=== PATIENT | male | born 1970 | race Two or more races ===

== ENCOUNTER 2020-12-28 09:33 | Emergency (ER) | payer OTHER ==
[~2020-12-28] VITALS: Ht 175.3 cm; Wt 77.3 kg
[2020-12-28] MEDS ORDERED: INSLAN SQ (09:42)
[2020-12-28] MEDS ORDERED: ANTIDEPRESSION PO (09:42)
[2020-12-28] MEDS ORDERED: ANTIANXIETY PO (09:42)
[2020-12-28] MEDS ORDERED: METF-960 PO (09:42)
[2020-12-28] MEDS ORDERED: SODIUM CHLORIDE 0.9% 1,000 ML IV ONE (09:45)
[2020-12-28 10:11] LABS: BASOPHILS % (AUTO) 0.5 % (0.0-2.0); EOSINOPHILS % (AUTO) 1.5 % (1.0-6.0); HEMATOCRIT 46.6 % (41-53); HEMOGLOBIN 15.7 g/dL (13.5-17.5); LYMPHOCYTES # (AUTO) 1.2 K/uL (1.0-4.8); LYMPHOCYTES % (AUTO) 27.9 % (22.0-44.0); MEAN CORPUSCULAR HEMOGLOBIN 31.8 pg (26.0-34.0); MEAN CORPUSCULAR HGB CONC 33.8 G/dL (31.0-37.0); MEAN CORPUSCULAR VOLUME 94 fL (80-100); MONOCYTES # (AUTO) 0.2 K/uL (0.1-1.0); MONOCYTES % (AUTO) 5.5 % (2.0-9.0); NEUTROPHILS # (AUTO) 2.8 K/uL (1.8-7.7); NEUTROPHILS % (AUTO) 64.6 % (40.0-70.0); PLATELET COUNT (AUTO) 117 K/uL (150-450); RED BLOOD CELL COUNT(AUTO) 4.96 MIL/uL (4.50-5.90); RED CELL DISTRIBUTION WIDTH 12.6 % (11.5-14.5)
[2020-12-28 10:19] LABS: ANION GAP 8 mmol/L (8-16); CALCIUM, TOTAL 8.7 mg/dL (8.8-10.5); CARBON DIOXIDE 28 mmol/L (22-29); CHLORIDE 99 mmol/L (98-107); CREATININE 0.64 mg/dL (0.60-1.30); GLOMERULAR FILTR. RATE CALC > 60 mL/min (>60); GLUCOSE,RANDOM 361 mg/dL (70-110); POTASSIUM 4.2 mmol/L (3.5-5.1); SODIUM SERUM 135 mmol/L (136-145); UREA NITROGEN, BLOOD 8 mg/dL (7-18)
[2020-12-28 10:22] LABS: ACETONE,BLOOD NEGATIVE (NEGATIVE)
[2020-12-28 10:25] LABS: ALANINE AMINOTRANSFERASE 78 U/L (12-78); ALBUMIN 3.6 g/dL (3.4-5.0); ALKALINE PHOSPHATASE 133 U/L (46-116); ASPARTATE AMINOTRANSFERASE 48 U/L (15-37); BILIRUBIN,TOTAL 0.4 mg/dL (0.1-1.0); LIPASE 126 U/L (73-393); TOTAL PROTEIN, SERUM 6.8 g/dL (6.4-8.2)
[2020-12-28] MEDS ORDERED: ONDANSETRON HCL 4 MG/2 ML VIAL IVP ONE (10:45)
[2020-12-28 11:41] LABS: GLUCOMETER DEV NAME(LOC) ERT.5; GLUCOSE,POINT OF CARE 278 MG/DL (70-110)
[2020-12-28 11:47] VITALS: BP 135/83
[2020-12-28 12:13] LABS: APPEARANCE,URINE CLEAR (CLEAR); BILIRUBIN,URINE NEGATIVE (NEGATIVE); GLUCOSE, URINE (UA) >=1000 mg/dL (NEGATIVE); KETONES,URINE NEGATIVE (NEGATIVE); LEUKOCYTE ESTERASE ,URINE NEGATIVE (NEGATIVE); NITRATE,URINE NEGATIVE (NEGATIVE); OCCULT BLOOD,URINE NEGATIVE (NEGATIVE); PH,URINE 6.5 (5.0-8.0); PROTEIN,URINE NEGATIVE (NEGATIVE); UROBILINOGEN,URINE 0.2 mg/dL (<=1.0)
[2020-12-28 12:27] LABS: BACTERIA,URINE None Seen /HPF (None Seen); RBC,URINE None Seen /HPF (0-2); SQUAMOUS EPITHELIAL CELL,UR None Seen /LPF (None Seen); WBC,URINE None Seen /HPF (0-5)
== END 2020-12-28 12:14 | disposition home or self-care (01) ==
LOC: EMS 09:35
DX: E11.65 Type 2 diabetes mellitus with hyperglycemia (principal); F32.9 Major depressive disorder, single episode, unspecified; F41.9 Anxiety disorder, unspecified; F17.210 Nicotine dependence, cigarettes, uncomplicated
CPT/HCPCS: 36415; 80053; 81001; 82009; 82962; 83690; 85025; 96361; 96374; 99284; J2405; J7030; 99283

== ENCOUNTER 2021-01-10 11:36 | Emergency (ER) | payer OTHER ==
[~2021-01-10] VITALS: Ht 172.7 cm; Wt 79.5 kg
[~2021-01-10 11:36] MED LIST: ANTIANXIETY PO; ANTIDEPRESSION PO; INSLAN SQ; METF-960 PO
[2021-01-10] MEDS ORDERED: GLIP10 PO (11:41)
[2021-01-10 12:19] LABS: BASOPHILS % (AUTO) 0.3 % (0.0-2.0); EOSINOPHILS % (AUTO) 0.8 % (1.0-6.0); HEMATOCRIT 44.5 % (41-53); LYMPHOCYTES # (AUTO) 1.6 K/uL (1.0-4.8); LYMPHOCYTES % (AUTO) 28.5 % (22.0-44.0); MEAN CORPUSCULAR HEMOGLOBIN 31.7 pg (26.0-34.0); MEAN CORPUSCULAR HGB CONC 33.6 G/dL (31.0-37.0); MEAN CORPUSCULAR VOLUME 94 fL (80-100); MONOCYTES # (AUTO) 0.3 K/uL (0.1-1.0); MONOCYTES % (AUTO) 4.9 % (2.0-9.0); NEUTROPHILS # (AUTO) 3.6 K/uL (1.8-7.7); NEUTROPHILS % (AUTO) 65.5 % (40.0-70.0); PLATELET COUNT (AUTO) 147 K/uL (150-450); RED BLOOD CELL COUNT(AUTO) 4.71 MIL/uL (4.50-5.90); RED CELL DISTRIBUTION WIDTH 12.9 % (11.5-14.5)
[2021-01-10 12:27] LABS: ANION GAP 9 mmol/L (8-16); CALCIUM, TOTAL 8.5 mg/dL (8.8-10.5); CARBON DIOXIDE 26 mmol/L (22-29); CHLORIDE 101 mmol/L (98-107); CREATININE 0.74 mg/dL (0.60-1.30); GLOMERULAR FILTR. RATE CALC > 60 mL/min (>60); GLUCOSE,RANDOM 396 mg/dL (70-110); POTASSIUM 4.4 mmol/L (3.5-5.1); SODIUM SERUM 136 mmol/L (136-145); UREA NITROGEN, BLOOD 10 mg/dL (7-18)
[2021-01-10 12:33] LABS: ALANINE AMINOTRANSFERASE 59 U/L (12-78); ALBUMIN 3.4 g/dL (3.4-5.0); ALKALINE PHOSPHATASE 97 U/L (46-116); ASPARTATE AMINOTRANSFERASE 27 U/L (15-37); BILIRUBIN,TOTAL 0.3 mg/dL (0.1-1.0); CREATINE KINASE, TOTAL ONLY 48 U/L (39-308); TOTAL PROTEIN, SERUM 6.8 g/dL (6.4-8.2)
[2021-01-10 13:01] VITALS: BP 114/76
== END 2021-01-10 13:09 | disposition home or self-care (01) ==
LOC: EMS 11:37
DX: R25.2 Cramp and spasm (principal); E13.65 Other specified diabetes mellitus with hyperglycemia; F41.9 Anxiety disorder, unspecified; F32.9 Major depressive disorder, single episode, unspecified; F17.210 Nicotine dependence, cigarettes, uncomplicated; Z79.4 Long term (current) use of insulin; Z79.899 Other long term (current) drug therapy
CPT/HCPCS: 80053; 82550; 82962; 85025; 99283

== ENCOUNTER 2021-03-28 11:59 | Emergency (ER) | payer OTHER ==
[~2021-03-28] VITALS: Ht 172.7 cm; Wt 71.8 kg
[~2021-03-28 11:59] MED LIST changes: +GLIP10 PO; +METF-1211 PO; -METF-960 PO
[2021-03-28] MEDS ORDERED: INSULIN REGULAR, HUMAN 100 UNITS/ML IVP ONE (12:30)
[2021-03-28] MEDS ORDERED: ONDANSETRON HCL 4 MG/2 ML VIAL IVP ONE (12:30)
[2021-03-28] MEDS ORDERED: SODIUM CHLORIDE 0.9% 1,000 ML IV ONE (12:30)
[2021-03-28 12:57] LABS: ALANINE AMINOTRANSFERASE 55 U/L (12-78); ALBUMIN 3.6 g/dL (3.4-5.0); ALKALINE PHOSPHATASE 136 U/L (46-116); ANION GAP 14 mmol/L (8-16); ASPARTATE AMINOTRANSFERASE 33 U/L (15-37); BILIRUBIN,TOTAL 0.4 mg/dL (0.1-1.0); CALCIUM, TOTAL 8.7 mg/dL (8.8-10.5); CARBON DIOXIDE 21 mmol/L (22-29); CHLORIDE 99 mmol/L (98-107); CREATININE 0.69 mg/dL (0.60-1.30); GLOMERULAR FILTR. RATE CALC > 60 mL/min (>60); LIPASE 137 U/L (73-393); POTASSIUM 3.9 mmol/L (3.5-5.1); SODIUM SERUM 134 mmol/L (136-145); UREA NITROGEN, BLOOD 10 mg/dL (7-18)
[2021-03-28 12:58] LABS: GLUCOSE,RANDOM 434 mg/dL (70-110)
[2021-03-28 13:29] LABS: BASOPHILS % (AUTO) 0.5 % (0.0-2.0); EOSINOPHILS % (AUTO) 0.4 % (1.0-6.0); HEMATOCRIT 44.2 % (41-53); LYMPHOCYTES # (AUTO) 1.6 K/uL (1.0-4.8); LYMPHOCYTES % (AUTO) 25.8 % (22.0-44.0); MEAN CORPUSCULAR HEMOGLOBIN 32.1 pg (26.0-34.0); MEAN CORPUSCULAR HGB CONC 33.9 G/dL (31.0-37.0); MEAN CORPUSCULAR VOLUME 95 fL (80-100); MONOCYTES # (AUTO) 0.2 K/uL (0.1-1.0); MONOCYTES % (AUTO) 3.5 % (2.0-9.0); NEUTROPHILS # (AUTO) 4.3 K/uL (1.8-7.7); NEUTROPHILS % (AUTO) 69.8 % (40.0-70.0); PLATELET COUNT (AUTO) 146 K/uL (150-450); RED BLOOD CELL COUNT(AUTO) 4.67 MIL/uL (4.50-5.90); RED CELL DISTRIBUTION WIDTH 12.9 % (11.5-14.5)
[2021-03-28 13:45] VITALS: BP 128/73
[2021-03-28 13:53] LABS: GLUCOSE,POINT OF CARE 282 MG/DL (70-110)
== END 2021-03-28 13:59 | disposition home or self-care (01) ==
LOC: EMS 11:59
DX: T78.1XXA Other adverse food reactions, not elsewhere classified, initial encounter (principal); R11.2 Nausea with vomiting, unspecified; E11.65 Type 2 diabetes mellitus with hyperglycemia; G62.9 Polyneuropathy, unspecified; X58.XXXA Exposure to other specified factors, initial encounter; Z79.4 Long term (current) use of insulin; Z79.84 Long term (current) use of oral hypoglycemic drugs
CPT/HCPCS: 36415; 80053; 82962; 83690; 85025; 96361; 96374; 96375; 99284; J1815; J2405; J7030

== ENCOUNTER 2021-03-30 10:06 | Emergency (ER) | payer OTHER ==
[~2021-03-30] VITALS: Ht 172.7 cm; Wt 79.5 kg
[2021-03-30] MEDS ORDERED: SODIUM CHLORIDE 0.9% 1,000 ML IV ONE ×2 (10:45→12:15)
[2021-03-30] MEDS ORDERED: INSULIN REGULAR, HUMAN 100 UNITS/ML IVP ONE (10:45)
[2021-03-30 10:59] LABS: BASOPHILS % (AUTO) 0.3 % (0.0-2.0); EOSINOPHILS % (AUTO) 0.1 % (1.0-6.0); HEMATOCRIT 48.2 % (41-53); HEMOGLOBIN 16.6 g/dL (13.5-17.5); LYMPHOCYTES # (AUTO) 1.7 K/uL (1.0-4.8); LYMPHOCYTES % (AUTO) 20.1 % (22.0-44.0); MEAN CORPUSCULAR HEMOGLOBIN 32.4 pg (26.0-34.0); MEAN CORPUSCULAR HGB CONC 34.3 G/dL (31.0-37.0); MEAN CORPUSCULAR VOLUME 94 fL (80-100); MONOCYTES # (AUTO) 0.7 K/uL (0.1-1.0); MONOCYTES % (AUTO) 7.9 % (2.0-9.0); NEUTROPHILS % (AUTO) 71.6 % (40.0-70.0); PLATELET COUNT (AUTO) 153 K/uL (150-450); RED BLOOD CELL COUNT(AUTO) 5.11 MIL/uL (4.50-5.90); RED CELL DISTRIBUTION WIDTH 12.8 % (11.5-14.5)
[2021-03-30 11:09] LABS: GLUCOMETER DEV NAME(LOC) ERT.5; GLUCOSE,POINT OF CARE 332 MG/DL (70-110)
[2021-03-30 11:11] LABS: ANION GAP 16 mmol/L (8-16); CALCIUM, TOTAL 9.1 mg/dL (8.8-10.5); CARBON DIOXIDE 24 mmol/L (22-29); CHLORIDE 96 mmol/L (98-107); CREATININE 1.04 mg/dL (0.60-1.30); GLOMERULAR FILTR. RATE CALC > 60 mL/min (>60); GLUCOSE,RANDOM 357 mg/dL (70-110); POTASSIUM 4.1 mmol/L (3.5-5.1); SODIUM SERUM 136 mmol/L (136-145); UREA NITROGEN, BLOOD 14 mg/dL (7-18)
[2021-03-30 11:19] LABS: ALANINE AMINOTRANSFERASE 86 U/L (12-78); ALKALINE PHOSPHATASE 119 U/L (46-116); ASPARTATE AMINOTRANSFERASE 79 U/L (15-37); BILIRUBIN,TOTAL 0.9 mg/dL (0.1-1.0); TOTAL PROTEIN, SERUM 7.7 g/dL (6.4-8.2)
[2021-03-30] MEDS ORDERED: ACETAMINOPHEN 325 MG TABLET PO PRN (12:15)
[2021-03-30] MEDS ORDERED: DIAZEPAM 5 MG/ML 2 ML SYRINGE IVP ONE (12:15)
[2021-03-30] MEDS ORDERED: ONDANSETRON HCL 4 MG/2 ML VIAL IVP PRN (12:15)
[2021-03-30] MEDS ORDERED: INSULIN LISPRO 100 UNITS/ML SQ PRN (12:15)
[2021-03-30] MEDS ORDERED: DEXTROSE 50%-WATER 25 GM/50 ML SYRINGE IVP PRN (12:15)
[2021-03-30 12:33] LABS: COVID AG,FIA SOURCE NASOPHARYNGEAL
[2021-03-30 13:35] VITALS: BP 137/99
== END 2021-03-30 13:37 | disposition left against medical advice (07) ==
LOC: EMS 10:07
DX: F10.239 Alcohol dependence with withdrawal, unspecified (principal); R25.2 Cramp and spasm; E11.65 Type 2 diabetes mellitus with hyperglycemia; F17.210 Nicotine dependence, cigarettes, uncomplicated; G62.9 Polyneuropathy, unspecified; Z20.822 Contact with and (suspected) exposure to COVID-19
CPT/HCPCS: 36415; 80053; 82962; 83735; 85025; 87426; 93005; 96361; 96374; 96375; 99285; G0480; J1815; J1885; J7030

== ENCOUNTER 2021-05-04 18:22 | Emergency (ER) | payer OTHER ==
[~2021-05-04] VITALS: Ht 172.7 cm; Wt 79.5 kg
[2021-05-04 18:58] LABS: COVID AG,FIA SOURCE NASOPHARYNGEAL
[2021-05-04 19:01] LABS: GLUCOMETER DEV NAME(LOC) ERT.5; GLUCOSE,POINT OF CARE 176 MG/DL (70-110)
[2021-05-04] MEDS ORDERED: DEXAMETHASONE 4 MG TABLET PO ONE (19:45)
[2021-05-04 20:20] LABS: INFLUENZA TYPE A NEGATIVE FOR TYPE A (NEGATIVE); INFLUENZA TYPE B NEGATIVE FOR TYPE B (NEGATIVE)
[2021-05-04 20:49] VITALS: BP 159/96
== END 2021-05-04 20:50 | disposition home or self-care (01) ==
LOC: EMS 18:53
DX: U07.1 COVID-19 (principal)
CPT/HCPCS: 82962; 87426; 87430; 87804; 99283; J8540; 82948

== ENCOUNTER 2021-05-22 11:29 | Emergency (ER) | payer OTHER ==
[~2021-05-22] VITALS: Ht 172.7 cm; Wt 75.0 kg
[2021-05-22 11:54] VITALS: BP 133/83
[2021-05-22 14:11] LABS: COVID AG,FIA SOURCE NASAL SWAB
== END 2021-05-22 15:02 | disposition home or self-care (01) ==
LOC: EMS 11:31
DX: U07.1 COVID-19 (principal); I10 Essential (primary) hypertension; E11.9 Type 2 diabetes mellitus without complications; F17.210 Nicotine dependence, cigarettes, uncomplicated; Z79.899 Other long term (current) drug therapy
CPT/HCPCS: 87426; 99283; U0003

== ENCOUNTER 2021-05-27 17:56 | Emergency (ER) | payer OTHER ==
[~2021-05-27] VITALS: Ht 172.7 cm; Wt 79.5 kg
[2021-05-27 17:58] VITALS: BP 129/83
== END 2021-05-27 20:45 | disposition home or self-care (01) ==
LOC: EMS 17:58
DX: J06.9 Acute upper respiratory infection, unspecified (principal); I10 Essential (primary) hypertension; E11.9 Type 2 diabetes mellitus without complications; F17.210 Nicotine dependence, cigarettes, uncomplicated; Z79.4 Long term (current) use of insulin; Z79.899 Other long term (current) drug therapy
CPT/HCPCS: 71045; 99283

== ENCOUNTER 2021-12-19 15:19 | Emergency (ER) | payer OTHER ==
[~2021-12-19] VITALS: Ht 172.7 cm; Wt 75.0 kg
[~2021-12-19 15:19] MED LIST changes: -GLIP10 PO; +GLIP10TA10 PO
[2021-12-19 16:07] VITALS: BP 119/88
== END 2021-12-19 20:17 | disposition home or self-care (01) ==
LOC: EMS 15:19
DX: F15.10 Other stimulant abuse, uncomplicated (principal); E11.9 Type 2 diabetes mellitus without complications; I10 Essential (primary) hypertension; G62.9 Polyneuropathy, unspecified; F17.210 Nicotine dependence, cigarettes, uncomplicated; F11.90 Opioid use, unspecified, uncomplicated; Z98.890 Other specified postprocedural states
CPT/HCPCS: 99282

== ENCOUNTER 2022-01-18 16:14 | Emergency (ER) | payer OTHER ==
[~2022-01-18] VITALS: Ht 172.7 cm; Wt 72.7 kg
[2022-01-18 16:19] VITALS: BP 151/90
== END 2022-01-18 17:33 | disposition left against medical advice (07) ==
LOC: EMS 16:14
DX: Z53.21 Procedure and treatment not carried out due to patient leaving prior to being seen by health care provider (principal)
CPT/HCPCS: 82962

== ENCOUNTER 2022-02-27 22:28 | Emergency (ER) | payer OTHER | END 2022-02-27 23:15 | disposition left against medical advice (07) | LOC: EMS 22:28 | DX: Z53.21 Procedure and treatment not carried out due to patient leaving prior to being seen by health care provider (principal) ==

== ENCOUNTER 2022-03-10 11:47 | Inpatient (IN) | payer MEDICAID ==
[~2022-03-10] VITALS: Ht 172.7 cm; Wt 71.7 kg
[2022-03-10 12:56] LABS: GLUCOMETER DEV NAME(LOC) BV3S.; GLUCOSE,POINT OF CARE 391 MG/DL (70-110)
[2022-03-10 13:16] LABS: GLUCOMETER DEV NAME(LOC) POC.BV
[2022-03-10 22:00] VITALS: BP 139/92
[2022-03-10] MEDS ORDERED: INSULIN LISPRO 100 UNITS/ML SQ PRN (22:30)
[2022-03-10] MEDS ORDERED: DEXTROSE 50%-WATER 25 GM/50 ML SYRINGE IVP PRN (22:30)
[2022-03-11] MEDS ORDERED: GLUCAGON,HUMAN RECOMBINANT 1 MG VIAL IM PRN (01:00)
[2022-03-11] MEDS ORDERED: PNEUMOCOCCAL VACCINE POLYVALENT 0.5 ML VIAL [PPSV23] IM. ONE (03:45)
[2022-03-11] MEDS ORDERED: INFLUENZA VIRUS VACCINE QVS 2022-23 (6MO+)/PF 60 MCG/0.5 ML SYRINGE IM. ONE (03:45)
[2022-03-11] MEDS: INSULIN LISPRO 100 UNITS/ML SQ PRN ×4 (06:20→20:50)
[2022-03-11 06:26] LABS: GLUCOMETER DEV NAME(LOC) BV3N.; GLUCOSE,POINT OF CARE 278 MG/DL (70-110)
[2022-03-11 07:13] LABS: BASOPHILS % (AUTO) 0.4 % (0.0-2.0); EOSINOPHILS % (AUTO) 1.4 % (1.0-6.0); HEMATOCRIT 42.6 % (41-53); HEMOGLOBIN 14.4 g/dL (13.5-17.5); LYMPHOCYTES # (AUTO) 1.8 K/uL (1.0-4.8); LYMPHOCYTES % (AUTO) 46.4 % (22.0-44.0); MEAN CORPUSCULAR HEMOGLOBIN 31.7 pg (26.0-34.0); MEAN CORPUSCULAR HGB CONC 33.7 G/dL (31.0-37.0); MEAN CORPUSCULAR VOLUME 94 fL (80-100); MONOCYTES # (AUTO) 0.3 K/uL (0.1-1.0); MONOCYTES % (AUTO) 7.3 % (2.0-9.0); NEUTROPHILS # (AUTO) 1.7 K/uL (1.8-7.7); NEUTROPHILS % (AUTO) 44.5 % (40.0-70.0); PLATELET COUNT (AUTO) 155 K/uL (150-450); RED BLOOD CELL COUNT(AUTO) 4.54 MIL/uL (4.50-5.90); RED CELL DISTRIBUTION WIDTH 13.7 % (11.5-14.5)
[2022-03-11 07:34] LABS: ALANINE AMINOTRANSFERASE 47 U/L (12-78); ALBUMIN 3.1 g/dL (3.4-5.0); ALKALINE PHOSPHATASE 79 U/L (46-116); ANION GAP 6 mmol/L (8-16); ASPARTATE AMINOTRANSFERASE 27 U/L (15-37); BILIRUBIN,TOTAL 0.4 mg/dL (0.1-1.0); CALCIUM, TOTAL 8.8 mg/dL (8.8-10.5); CARBON DIOXIDE 28 mmol/L (22-29); CHLORIDE 104 mmol/L (98-107); CHOL/HDL RATIO 2.2 (4.2-7.3); CHOLESTEROL 158 mg/dL (131-200); CREATININE 0.69 mg/dL (0.60-1.30); FREE T4 (FREE THYROXINE) 1.13 ng/dL (0.76-1.46); GLUCOSE,RANDOM 292 mg/dL (70-110); HDL CHOLESTEROL 73 mg/dL (40-60); LDL CHOL (CALC.) 60 mg/dL (0-130); POTASSIUM 3.9 mmol/L (3.5-5.1); SODIUM SERUM 138 mmol/L (136-145); THYROID STIMULATING HORMONE 0.66 uIU/mL (0.36-3.74); TOTAL PROTEIN, SERUM 6.1 g/dL (6.4-8.2); TRIGLYCERIDES 124 mg/dL (15-150); UREA NITROGEN, BLOOD 7 mg/dL (7-18)
[2022-03-11 07:38] LABS: GLOMERULAR FILTR. RATE CALC > 60 mL/min (>60)
[2022-03-11 07:45] LABS: HEMOGLOBIN A1C 10.5 % (3.8-5.6)
[2022-03-11 08:27] VITALS: BP 106/68
[2022-03-11 11:47] LABS: GLUCOMETER DEV NAME(LOC) BV3N.; GLUCOSE,POINT OF CARE 346 MG/DL (70-110)
[2022-03-11] MEDS ORDERED: LISI5TAB21 PO (14:18)
[2022-03-11] MEDS ORDERED: GABA-1181 PO (14:18)
[2022-03-11] MEDS ORDERED: SIMV-43 PO (14:18)
[2022-03-11] MEDS ORDERED: PIOG15TA66 PO (14:18)
[2022-03-11] MEDS: ESCITALOPRAM OXALATE 10 MG TABLET PO SCH (16:11)
[2022-03-11] MEDS: ARIPiprazole 10 MG TABLET PO SCH (16:11)
[2022-03-11] MEDS: INSULIN GLARGINE,HUM.REC.ANLOG 100 UNITS/ML SQ SCH (16:37)
[2022-03-11 16:46] LABS: GLUCOMETER DEV NAME(LOC) BV3N.; GLUCOSE,POINT OF CARE 309 MG/DL (70-110)
[2022-03-11] MEDS ORDERED: INSULIN GLARGINE,HUM.REC.ANLOG 100 UNITS/ML SQ SCH (17:00)
[2022-03-11] MEDS: SIMVASTATIN 20 MG TABLET PO SCH (20:41)
[2022-03-11] MEDS: ZOLPIDEM TARTRATE 10 MG TABLET PO PRN (20:41)
[2022-03-11 20:52] VITALS: BP 126/82
[2022-03-11 21:00] LABS: GLUCOMETER DEV NAME(LOC) BV3N.; GLUCOSE,POINT OF CARE 297 MG/DL (70-110)
[2022-03-12] MEDS: MetFORMIN HCL 500 MG TABLET PO SCH (06:29)
[2022-03-12] MEDS: GlipiZIDE 10 MG TABLET PO SCH (06:29)
[2022-03-12] MEDS ORDERED: GlipiZIDE 10 MG TABLET PO SCH (06:30)
[2022-03-12] MEDS: INSULIN LISPRO 100 UNITS/ML SQ PRN ×4 (06:31→21:07)
[2022-03-12 06:42] LABS: GLUCOMETER DEV NAME(LOC) BV3N.; GLUCOSE,POINT OF CARE 237 MG/DL (70-110)
[2022-03-12] MEDS ORDERED: MetFORMIN HCL 850 MG TABLET PO SCH (07:00)
[2022-03-12] MEDS: LISINOPRIL 5 MG TABLET PO SCH (08:11)
[2022-03-12] MEDS: ARIPiprazole 10 MG TABLET PO SCH (08:11)
[2022-03-12] MEDS: ESCITALOPRAM OXALATE 10 MG TABLET PO SCH (08:11)
[2022-03-12 08:22] VITALS: BP 128/73
[2022-03-12] MEDS: INSULIN GLARGINE,HUM.REC.ANLOG 100 UNITS/ML SQ SCH ×2 (09:08→16:56)
[2022-03-12] MEDS: HALOPERIDOL 5 MG TABLET PO PRN (10:26)
[2022-03-12] MEDS: LORazepam 2 MG TABLET PO PRN (10:26)
[2022-03-12] MEDS ORDERED: LORazepam 2 MG/ML VIAL IM ONE (11:15)
[2022-03-12] MEDS ORDERED: DiphenhydrAMINE HCL 50 MG/ML VIAL IM ONE (11:15)
[2022-03-12] MEDS ORDERED: HALOPERIDOL LACTATE 5 MG/ML VIAL IM ONE (11:15)
[2022-03-12 11:56] LABS: GLUCOMETER DEV NAME(LOC) BV3N.; GLUCOSE,POINT OF CARE 291 MG/DL (70-110)
[2022-03-12 17:16] LABS: GLUCOMETER DEV NAME(LOC) BV3N.; GLUCOSE,POINT OF CARE 266 MG/DL (70-110)
[2022-03-12 20:09] VITALS: BP 135/82
[2022-03-12] MEDS: SIMVASTATIN 20 MG TABLET PO SCH (21:06)
[2022-03-12 22:36] LABS: GLUCOMETER DEV NAME(LOC) BV3N.; GLUCOSE,POINT OF CARE 270 MG/DL (70-110)
[2022-03-13 06:16] LABS: GLUCOMETER DEV NAME(LOC) BV3N.; GLUCOSE,POINT OF CARE 221 MG/DL (70-110)
[2022-03-13] MEDS: GlipiZIDE 10 MG TABLET PO SCH (06:29)
[2022-03-13] MEDS: MetFORMIN HCL 500 MG TABLET PO SCH (06:30)
[2022-03-13] MEDS: INSULIN LISPRO 100 UNITS/ML SQ PRN ×4 (06:32→20:38)
[2022-03-13 08:10] VITALS: BP 121/86
[2022-03-13] MEDS: ESCITALOPRAM OXALATE 10 MG TABLET PO SCH (08:12)
[2022-03-13] MEDS: LISINOPRIL 5 MG TABLET PO SCH (08:12)
[2022-03-13] MEDS: ARIPiprazole 10 MG TABLET PO SCH (08:13)
[2022-03-13] MEDS: HALOPERIDOL 5 MG TABLET PO PRN ×2 (08:13→16:47)
[2022-03-13] MEDS: LORazepam 2 MG TABLET PO PRN ×2 (08:13→16:47)
[2022-03-13] MEDS: INSULIN GLARGINE,HUM.REC.ANLOG 100 UNITS/ML SQ SCH ×2 (08:29→16:49)
[2022-03-13 11:41] LABS: GLUCOMETER DEV NAME(LOC) BV3N.; GLUCOSE,POINT OF CARE 181 MG/DL (70-110)
[2022-03-13 17:11] LABS: GLUCOMETER DEV NAME(LOC) BV3N.; GLUCOSE,POINT OF CARE 158 MG/DL (70-110)
[2022-03-13] MEDS: SIMVASTATIN 20 MG TABLET PO SCH (20:37)
[2022-03-13] MEDS: ZOLPIDEM TARTRATE 10 MG TABLET PO PRN (20:37)
[2022-03-13 20:47] LABS: GLUCOMETER DEV NAME(LOC) BV3N.; GLUCOSE,POINT OF CARE 240 MG/DL (70-110)
[2022-03-13 21:37] VITALS: BP 118/80
[2022-03-14 06:17] LABS: GLUCOMETER DEV NAME(LOC) BV3N.; GLUCOSE,POINT OF CARE 114 MG/DL (70-110)
[2022-03-14] MEDS: MetFORMIN HCL 500 MG TABLET PO SCH (06:30)
[2022-03-14] MEDS: GlipiZIDE 10 MG TABLET PO SCH (06:30)
[2022-03-14 08:16] VITALS: BP 107/70
[2022-03-14] MEDS: LISINOPRIL 5 MG TABLET PO SCH (08:32)
[2022-03-14] MEDS: ARIPiprazole 10 MG TABLET PO SCH (08:32)
[2022-03-14] MEDS: LORazepam 2 MG TABLET PO PRN ×3 (08:32→20:51)
[2022-03-14] MEDS: ESCITALOPRAM OXALATE 10 MG TABLET PO SCH (08:32)
[2022-03-14] MEDS: HALOPERIDOL 5 MG TABLET PO PRN ×2 (08:32→16:10)
[2022-03-14] MEDS: INSULIN GLARGINE,HUM.REC.ANLOG 100 UNITS/ML SQ SCH ×2 (08:50→16:57)
[2022-03-14] MEDS: INSULIN LISPRO 100 UNITS/ML SQ PRN ×2 (16:57→20:57)
[2022-03-14 17:42] LABS: GLUCOMETER DEV NAME(LOC) BV3N.; GLUCOSE,POINT OF CARE 253 MG/DL (70-110)
[2022-03-14 20:09] VITALS: BP 106/66
[2022-03-14] MEDS: ZOLPIDEM TARTRATE 10 MG TABLET PO PRN (20:51)
[2022-03-14] MEDS: SIMVASTATIN 20 MG TABLET PO SCH (20:51)
[2022-03-14 22:35] LABS: GLUCOMETER DEV NAME(LOC) BV3N.; GLUCOSE,POINT OF CARE 209 MG/DL (70-110)
[2022-03-15] MEDS: GlipiZIDE 10 MG TABLET PO SCH (06:19)
[2022-03-15] MEDS: MetFORMIN HCL 500 MG TABLET PO SCH (06:20)
[2022-03-15 06:41] LABS: GLUCOMETER DEV NAME(LOC) BV3N.; GLUCOSE,POINT OF CARE 92 MG/DL (70-110)
[2022-03-15 08:12] VITALS: BP 112/67
[2022-03-15] MEDS: ARIPiprazole 10 MG TABLET PO SCH (08:20)
[2022-03-15] MEDS: LISINOPRIL 5 MG TABLET PO SCH (08:20)
[2022-03-15] MEDS: LORazepam 2 MG TABLET PO PRN ×2 (08:20→16:13)
[2022-03-15] MEDS: ESCITALOPRAM OXALATE 10 MG TABLET PO SCH (08:20)
[2022-03-15] MEDS: HALOPERIDOL 5 MG TABLET PO PRN ×2 (08:20→16:13)
[2022-03-15] MEDS: INSULIN GLARGINE,HUM.REC.ANLOG 100 UNITS/ML SQ SCH ×3 (08:26→16:20)
[2022-03-15] MEDS: INSULIN LISPRO 100 UNITS/ML SQ PRN ×2 (16:19→20:03)
[2022-03-15] MEDS: SIMVASTATIN 20 MG TABLET PO SCH (20:01)
[2022-03-15 20:06] LABS: GLUCOMETER DEV NAME(LOC) BV3N.; GLUCOSE,POINT OF CARE 266 MG/DL (70-110)
[2022-03-15 20:13] VITALS: BP 114/66
[2022-03-15] MEDS: ZOLPIDEM TARTRATE 10 MG TABLET PO PRN (20:33)
[2022-03-15 20:40] LABS: GLUCOMETER DEV NAME(LOC) BV3N.; GLUCOSE,POINT OF CARE 171 MG/DL (70-110)
[2022-03-16 06:11] LABS: GLUCOMETER DEV NAME(LOC) BV3N.; GLUCOSE,POINT OF CARE 105 MG/DL (70-110)
[2022-03-16] MEDS: GlipiZIDE 10 MG TABLET PO SCH (06:43)
[2022-03-16] MEDS: MetFORMIN HCL 500 MG TABLET PO SCH (06:43)
[2022-03-16 08:20] VITALS: BP 113/77
[2022-03-16] MEDS: ARIPiprazole 10 MG TABLET PO SCH (08:37)
[2022-03-16] MEDS: LORazepam 2 MG TABLET PO PRN (08:37)
[2022-03-16] MEDS: LISINOPRIL 5 MG TABLET PO SCH (08:37)
[2022-03-16] MEDS: ESCITALOPRAM OXALATE 10 MG TABLET PO SCH (08:37)
[2022-03-16] MEDS: INSULIN GLARGINE,HUM.REC.ANLOG 100 UNITS/ML SQ SCH ×2 (08:43→17:00)
[2022-03-16 11:56] LABS: GLUCOMETER DEV NAME(LOC) BV3N.; GLUCOSE,POINT OF CARE 154 MG/DL (70-110)
[2022-03-16] MEDS: INSULIN LISPRO 100 UNITS/ML SQ PRN (12:32)
[2022-03-16] MEDS ORDERED: GLIP10TA10 PO (16:46)
[2022-03-16] MEDS ORDERED: ESCI-8 PO (16:46)
[2022-03-16] MEDS ORDERED: INSLAN SQ (16:46)
[2022-03-16] MEDS ORDERED: ARIP10TA38 PO (16:46)
[2022-03-16] MEDS ORDERED: METF-1211 PO (16:46)
== END 2022-03-16 18:00 | disposition home or self-care (01) | DRG 750 ==
LOC: B3A 18:23
PROVIDERS: ADMIT Psychiatry & Neurology Psychiatry; ATTEND Psychiatry & Neurology Psychiatry
DX: F25.1 Schizoaffective disorder, depressive type (principal); E11.9 Type 2 diabetes mellitus without complications; R45.851 Suicidal ideations; E78.5 Hyperlipidemia, unspecified; F10.10 Alcohol abuse, uncomplicated; F15.10 Other stimulant abuse, uncomplicated; I10 Essential (primary) hypertension; Z20.822 Contact with and (suspected) exposure to COVID-19; Z59.00 Homelessness unspecified; Z79.899 Other long term (current) drug therapy
CPT/HCPCS: 80053; 80061; 82962; 83036; 84439; 84443; 85025; 90686; J1200; J1630; J1815; J2060

== ENCOUNTER 2022-03-10 13:50 | Emergency (ER) | payer MEDICAID, OTHER ==
[~2022-03-10] VITALS: Ht 167.6 cm; Wt 75.0 kg
[2022-03-10] MEDS ORDERED: HALOPERIDOL 5 MG TABLET PO ONE (14:45)
[2022-03-10] MEDS ORDERED: LORazepam 2 MG TABLET PO ONE (14:45)
[2022-03-10] MEDS ORDERED: DiphenhydrAMINE HCL 50 MG CAPSULE PO ONE (14:45)
[2022-03-10 14:48] LABS: BASOPHILS % (AUTO) 0.5 % (0.0-2.0); EOSINOPHILS % (AUTO) 1.3 % (1.0-6.0); HEMATOCRIT 43.3 % (41-53); HEMOGLOBIN 14.5 g/dL (13.5-17.5); LYMPHOCYTES # (AUTO) 2.1 K/uL (1.0-4.8); LYMPHOCYTES % (AUTO) 41.3 % (22.0-44.0); MEAN CORPUSCULAR HEMOGLOBIN 31.5 pg (26.0-34.0); MEAN CORPUSCULAR HGB CONC 33.5 G/dL (31.0-37.0); MEAN CORPUSCULAR VOLUME 94 fL (80-100); MONOCYTES # (AUTO) 0.3 K/uL (0.1-1.0); MONOCYTES % (AUTO) 6.6 % (2.0-9.0); NEUTROPHILS # (AUTO) 2.6 K/uL (1.8-7.7); NEUTROPHILS % (AUTO) 50.3 % (40.0-70.0); PLATELET COUNT (AUTO) 173 K/uL (150-450); RED CELL DISTRIBUTION WIDTH 13.7 % (11.5-14.5)
[2022-03-10 14:59] LABS: SALICYLATE 0.9 mg/dL (2.8-20.0)
[2022-03-10 15:00] LABS: ALANINE AMINOTRANSFERASE 47 U/L (12-78); ALBUMIN 3.6 g/dL (3.4-5.0); ALKALINE PHOSPHATASE 143 U/L (46-116); ANION GAP 14 mmol/L (8-16); ASPARTATE AMINOTRANSFERASE 23 U/L (15-37); BILIRUBIN,TOTAL 0.2 mg/dL (0.1-1.0); CALCIUM, TOTAL 9.3 mg/dL (8.8-10.5); CARBON DIOXIDE 23 mmol/L (22-29); CHLORIDE 98 mmol/L (98-107); CREATININE 0.81 mg/dL (0.60-1.30); POTASSIUM 3.6 mmol/L (3.5-5.1); SODIUM SERUM 135 mmol/L (136-145); TOTAL PROTEIN, SERUM 6.8 g/dL (6.4-8.2); UREA NITROGEN, BLOOD 8 mg/dL (7-18)
[2022-03-10 15:02] LABS: ACETAMINOPHEN < 2 mcg/mL (10-30); GLOMERULAR FILTR. RATE CALC > 60 mL/min (>60); GLUCOSE,RANDOM 421 mg/dL (70-110)
[2022-03-10 15:41] LABS: APPEARANCE,URINE CLEAR (CLEAR); BILIRUBIN,URINE NEGATIVE (NEGATIVE); GLUCOSE, URINE (UA) >=1000 mg/dL (NEGATIVE); KETONES,URINE NEGATIVE (NEGATIVE); LEUKOCYTE ESTERASE ,URINE NEGATIVE (NEGATIVE); NITRATE,URINE NEGATIVE (NEGATIVE); OCCULT BLOOD,URINE NEGATIVE (NEGATIVE); PH,URINE 5.5 (5.0-8.0); PROTEIN,URINE NEGATIVE (NEGATIVE); SPECIFIC GRAVITIY, URINE 1.036 (1.003-1.030); UROBILINOGEN,URINE <=1.0 mg/dL (<=1.0)
[2022-03-10] MEDS ORDERED: INSULIN REGULAR, HUMAN 100 UNITS/ML IVP ONE (15:45)
[2022-03-10] MEDS ORDERED: SODIUM CHLORIDE 0.9% 1,000 ML IV ONE (15:45)
[2022-03-10 15:51] LABS: GLUCOMETER DEV NAME(LOC) ERT.5; GLUCOSE,POINT OF CARE 328 MG/DL (70-110)
[2022-03-10 15:52] LABS: AMPHET/METH SCREEN,URINE POSITIVE (NEGATIVE); BARBITURATE SCREEN, URINE NEGATIVE (NEGATIVE); BENZODIAZEPINES SCREEN,URINE NEGATIVE (NEGATIVE); CANNABINOID SCREEN,URINE NEGATIVE (NEGATIVE); COCAINE SCREEN,URINE NEGATIVE (NEGATIVE); METHADONE SCREEN, URINE NEGATIVE (NEGATIVE); OPIATE SCREEN,URINE NEGATIVE (NEGATIVE)
[2022-03-10 16:02] LABS: PHENCYCLIDINE SCREEN,URINE NEGATIVE (NEGATIVE)
[2022-03-10 16:08] LABS: BACTERIA,URINE None Seen /HPF (None Seen); RBC,URINE None Seen /HPF (0-2); SQUAMOUS EPITHELIAL CELL,UR Few /LPF (None Seen); WBC,URINE None Seen /HPF (0-5)
[2022-03-10 18:11] LABS: GLUCOMETER DEV NAME(LOC) ERT.5; GLUCOSE,POINT OF CARE 229 MG/DL (70-110)
[2022-03-10 20:45] VITALS: BP 137/76
[2022-03-10 21:26] LABS: GLUCOMETER DEV NAME(LOC) ERT.5; GLUCOSE,POINT OF CARE 257 MG/DL (70-110)
[2022-03-11] MEDS ORDERED: PIOG15TA66 PO (14:18)
[2022-03-11] MEDS ORDERED: GABA-1181 PO (14:18)
[2022-03-11] MEDS ORDERED: SIMV-43 PO (14:18)
[2022-03-11] MEDS ORDERED: LISI5TAB21 PO (14:18)
== END 2022-03-10 21:35 | disposition home or self-care (01) ==
LOC: EMS 13:58
DX: F20.9 Schizophrenia, unspecified (principal); E11.9 Type 2 diabetes mellitus without complications; F11.90 Opioid use, unspecified, uncomplicated; F41.9 Anxiety disorder, unspecified; F10.20 Alcohol dependence, uncomplicated; F15.10 Other stimulant abuse, uncomplicated; F19.10 Other psychoactive substance abuse, uncomplicated; F17.210 Nicotine dependence, cigarettes, uncomplicated; I10 Essential (primary) hypertension
CPT/HCPCS: 99285; 96374; 96361; 80053; 82962; 85025; 36415; 80307; 81001; G0480; J1815; J7030; 81003; G0481

== ENCOUNTER 2022-04-12 12:51 | Emergency (ER) | payer MEDICAID, OTHER ==
[~2022-04-12] VITALS: Ht 167.6 cm; Wt 63.6 kg
[~2022-04-12 12:51] MED LIST changes: -ANTIANXIETY PO; -ANTIDEPRESSION PO; +ARIP10TA38 PO; +ESCI-8 PO; +LISI5TAB21 PO; +SIMV-43 PO
[2022-04-12 12:54] VITALS: BP 126/81
[2022-04-12] MEDS ORDERED: PIOG15TA66 PO (13:59)
[2022-04-12] MEDS ORDERED: GABA-1181 PO (13:59)
== END 2022-04-12 13:56 | disposition left against medical advice (07) ==
LOC: EMS 12:57
DX: Z53.21 Procedure and treatment not carried out due to patient leaving prior to being seen by health care provider (principal)
CPT/HCPCS: 82962

== ENCOUNTER 2022-04-13 04:47 | Emergency (ER) | payer OTHER ==
[~2022-04-13] VITALS: Ht 172.7 cm; Wt 63.6 kg
[~2022-04-13 04:47] MED LIST changes: +GABA-1181 PO; +PIOG15TA66 PO
[2022-04-13 05:11] LABS: GLUCOMETER DEV NAME(LOC) ERT.5; GLUCOSE,POINT OF CARE 341 MG/DL (70-110)
[2022-04-13] MEDS ORDERED: SODIUM CHLORIDE 0.9% 1,000 ML IV ONE (07:45)
[2022-04-13] MEDS ORDERED: INSULIN REGULAR, HUMAN 100 UNITS/ML IVP ONE (07:45)
[2022-04-13 08:00] LABS: COVID AG,FIA SOURCE NASAL SWAB
[2022-04-13 08:14] LABS: ANION GAP 15 mmol/L (8-16); CALCIUM, TOTAL 9.4 mg/dL (8.8-10.5); CARBON DIOXIDE 22 mmol/L (22-29); CHLORIDE 92 mmol/L (98-107); CREATININE 0.65 mg/dL (0.60-1.30); GLOMERULAR FILTR. RATE CALC > 60 mL/min (>60); GLUCOSE,RANDOM 266 mg/dL (70-110); POTASSIUM 4.5 mmol/L (3.5-5.1); SODIUM SERUM 129 mmol/L (136-145); UREA NITROGEN, BLOOD 7 mg/dL (7-18)
[2022-04-13 08:15] LABS: BASOPHILS % (AUTO) 0.2 % (0.0-2.0); EOSINOPHILS % (AUTO) 0.1 % (1.0-6.0); HEMATOCRIT 45.1 % (41-53); HEMOGLOBIN 15.6 g/dL (13.5-17.5); LYMPHOCYTES # (AUTO) 1.2 K/uL (1.0-4.8); LYMPHOCYTES % (AUTO) 11.3 % (22.0-44.0); MEAN CORPUSCULAR HEMOGLOBIN 32.3 pg (26.0-34.0); MEAN CORPUSCULAR HGB CONC 34.6 G/dL (31.0-37.0); MEAN CORPUSCULAR VOLUME 93 fL (80-100); MONOCYTES # (AUTO) 0.9 K/uL (0.1-1.0); MONOCYTES % (AUTO) 8.4 % (2.0-9.0); NEUTROPHILS # (AUTO) 8.7 K/uL (1.8-7.7); PLATELET COUNT (AUTO) 190 K/uL (150-450); RED BLOOD CELL COUNT(AUTO) 4.83 MIL/uL (4.50-5.90); RED CELL DISTRIBUTION WIDTH 12.4 % (11.5-14.5)
[2022-04-13 08:20] LABS: ALANINE AMINOTRANSFERASE 89 U/L (12-78); ALBUMIN 3.2 g/dL (3.4-5.0); ALKALINE PHOSPHATASE 91 U/L (46-116); ASPARTATE AMINOTRANSFERASE 78 U/L (15-37); BILIRUBIN,TOTAL 0.8 mg/dL (0.1-1.0); TOTAL PROTEIN, SERUM 7.8 g/dL (6.4-8.2)
[2022-04-13 09:05] LABS: INFLUENZA TYPE A NEGATIVE FOR TYPE A (NEGATIVE); INFLUENZA TYPE B NEGATIVE FOR TYPE B (NEGATIVE); RAPID GROUP A STREP NEGATIVE (NEGATIVE)
[2022-04-13 09:06] LABS: GLUCOSE,POINT OF CARE 261 MG/DL (70-110)
[2022-04-13 09:25] VITALS: BP 139/80
[2022-04-13 09:37] LABS: GLUCOSE,POINT OF CARE 174 MG/DL (70-110)
== END 2022-04-13 10:01 | disposition home or self-care (01) ==
LOC: EMS 04:48
DX: R05.9 Cough, unspecified (principal); Z20.822 Contact with and (suspected) exposure to COVID-19; E11.9 Type 2 diabetes mellitus without complications; F20.9 Schizophrenia, unspecified; F10.20 Alcohol dependence, uncomplicated; F15.10 Other stimulant abuse, uncomplicated; F17.210 Nicotine dependence, cigarettes, uncomplicated; I10 Essential (primary) hypertension; R41.9 Unspecified symptoms and signs involving cognitive functions and awareness
CPT/HCPCS: 99283; 96374; 96361; 87426; 80053; 82962; 85025; 87430; 87804; 36415; J1815; J7030

== ENCOUNTER 2022-04-18 11:32 | Emergency (ER) | payer OTHER ==
[~2022-04-18] VITALS: Ht 180.3 cm; Wt 72.0 kg
[~2022-04-18 11:32] MED LIST changes: -SIMV-43 PO
[2022-04-18] MEDS ORDERED: SODIUM CHLORIDE 0.9% 1,000 ML IV ONE (11:45)
[2022-04-18 12:08] LABS: BASOPHILS % (AUTO) 0.4 % (0.0-2.0); EOSINOPHILS % (AUTO) 0.3 % (1.0-6.0); HEMATOCRIT 43.2 % (41-53); HEMOGLOBIN 14.5 g/dL (13.5-17.5); LYMPHOCYTES # (AUTO) 2.1 K/uL (1.0-4.8); LYMPHOCYTES % (AUTO) 31.5 % (22.0-44.0); MEAN CORPUSCULAR HEMOGLOBIN 31.9 pg (26.0-34.0); MEAN CORPUSCULAR HGB CONC 33.6 G/dL (31.0-37.0); MEAN CORPUSCULAR VOLUME 95 fL (80-100); MONOCYTES # (AUTO) 0.3 K/uL (0.1-1.0); MONOCYTES % (AUTO) 5.3 % (2.0-9.0); NEUTROPHILS # (AUTO) 4.1 K/uL (1.8-7.7); NEUTROPHILS % (AUTO) 62.5 % (40.0-70.0); PLATELET COUNT (AUTO) 278 K/uL (150-450); RED BLOOD CELL COUNT(AUTO) 4.55 MIL/uL (4.50-5.90); RED CELL DISTRIBUTION WIDTH 12.6 % (11.5-14.5)
[2022-04-18 13:12] LABS: ANION GAP 12 mmol/L (8-16); CALCIUM, TOTAL 8.1 mg/dL (8.8-10.5); CARBON DIOXIDE 24 mmol/L (22-29); CHLORIDE 98 mmol/L (98-107); CREATININE 0.63 mg/dL (0.60-1.30); GLUCOSE,RANDOM 349 mg/dL (70-110); POTASSIUM 3.9 mmol/L (3.5-5.1); SODIUM SERUM 134 mmol/L (136-145); UREA NITROGEN, BLOOD 5 mg/dL (7-18)
[2022-04-18 13:13] LABS: GLOMERULAR FILTR. RATE CALC > 60 mL/min (>60)
[2022-04-18 13:18] LABS: ALANINE AMINOTRANSFERASE 108 U/L (12-78); ALBUMIN 2.7 g/dL (3.4-5.0); ALKALINE PHOSPHATASE 108 U/L (46-116); ASPARTATE AMINOTRANSFERASE 130 U/L (15-37); BILIRUBIN,TOTAL 0.1 mg/dL (0.1-1.0); TOTAL PROTEIN, SERUM 6.5 g/dL (6.4-8.2)
[2022-04-18 13:19] LABS: ACETAMINOPHEN < 2 mcg/mL (10-30)
[2022-04-18 13:31] LABS: SALICYLATE 1.2 mg/dL (2.8-20.0)
[2022-04-18 14:02] LABS: AMPHET/METH SCREEN,URINE POSITIVE (NEGATIVE); BARBITURATE SCREEN, URINE NEGATIVE (NEGATIVE); BENZODIAZEPINES SCREEN,URINE NEGATIVE (NEGATIVE); CANNABINOID SCREEN,URINE NEGATIVE (NEGATIVE); COCAINE SCREEN,URINE NEGATIVE (NEGATIVE); METHADONE SCREEN, URINE NEGATIVE (NEGATIVE); OPIATE SCREEN,URINE NEGATIVE (NEGATIVE)
[2022-04-18 14:03] LABS: PHENCYCLIDINE SCREEN,URINE NEGATIVE (NEGATIVE)
[2022-04-18 16:02] VITALS: BP 146/72
== END 2022-04-18 17:09 | disposition home or self-care (01) ==
LOC: EMS 11:39
DX: F15.10 Other stimulant abuse, uncomplicated (principal); F20.9 Schizophrenia, unspecified; F10.129 Alcohol abuse with intoxication, unspecified; F41.9 Anxiety disorder, unspecified; E11.9 Type 2 diabetes mellitus without complications; I10 Essential (primary) hypertension; G62.9 Polyneuropathy, unspecified; F17.210 Nicotine dependence, cigarettes, uncomplicated; F11.90 Opioid use, unspecified, uncomplicated; Z98.890 Other specified postprocedural states
CPT/HCPCS: 99291; 96360; 80053; 85025; 36415; 71045; 93005; 80307 ×2; G0480; J7030; G0481

== ENCOUNTER 2022-04-19 04:55 | Emergency (ER) | payer OTHER ==
[~2022-04-19] VITALS: Ht 175.3 cm; Wt 71.0 kg
[2022-04-19 05:21] LABS: GLUCOSE,POINT OF CARE 504 MG/DL (70-110)
[2022-04-19 05:34] LABS: BASOPHILS % (AUTO) 0.1 % (0.0-2.0); EOSINOPHILS % (AUTO) 0 % (1.0-6.0); HEMATOCRIT 41.3 % (41-53); HEMOGLOBIN 13.7 g/dL (13.5-17.5); LYMPHOCYTES # (AUTO) 0.6 K/uL (1.0-4.8); LYMPHOCYTES % (AUTO) 3.2 % (22.0-44.0); MEAN CORPUSCULAR HEMOGLOBIN 31.6 pg (26.0-34.0); MEAN CORPUSCULAR HGB CONC 33.2 G/dL (31.0-37.0); MEAN CORPUSCULAR VOLUME 95 fL (80-100); MONOCYTES # (AUTO) 1.1 K/uL (0.1-1.0); MONOCYTES % (AUTO) 5.7 % (2.0-9.0); NEUTROPHILS # (AUTO) 18.2 K/uL (1.8-7.7); PLATELET COUNT (AUTO) 305 K/uL (150-450); RED BLOOD CELL COUNT(AUTO) 4.34 MIL/uL (4.50-5.90); RED CELL DISTRIBUTION WIDTH 12.7 % (11.5-14.5)
[2022-04-19 05:47] LABS: ALANINE AMINOTRANSFERASE 105 U/L (12-78); ALBUMIN 3.1 g/dL (3.4-5.0); ALKALINE PHOSPHATASE 91 U/L (46-116); ANION GAP 12 mmol/L (8-16); ASPARTATE AMINOTRANSFERASE 57 U/L (15-37); BILIRUBIN,TOTAL 0.5 mg/dL (0.1-1.0); CARBON DIOXIDE 25 mmol/L (22-29); CHLORIDE 94 mmol/L (98-107); CREATININE 1.17 mg/dL (0.60-1.30); POTASSIUM 4.4 mmol/L (3.5-5.1); SODIUM SERUM 131 mmol/L (136-145); TOTAL PROTEIN, SERUM 7.3 g/dL (6.4-8.2); UREA NITROGEN, BLOOD 13 mg/dL (7-18)
[2022-04-19 05:50] LABS: PROTHROMBIN TIME 10.3 SEC (9.4-11.6)
[2022-04-19 05:57] LABS: GLOMERULAR FILTR. RATE CALC > 60 mL/min (>60); GLUCOSE,RANDOM 538 mg/dL (70-110)
[2022-04-19 06:03] LABS: PLATELET MORPHOLOGY COMMENT LARGE PLTS PRESENT
[2022-04-19] MEDS ORDERED: SODIUM CHLORIDE 0.9% 2,150 ML IV ONE (06:15)
[2022-04-19] MEDS ORDERED: INSULIN REGULAR, HUMAN 100 UNITS/ML IVP ONE (06:15)
[2022-04-19 06:23] LABS: APPEARANCE,URINE CLEAR (CLEAR); BILIRUBIN,URINE NEGATIVE (NEGATIVE); GLUCOSE, URINE (UA) >=1000 mg/dL (NEGATIVE); LEUKOCYTE ESTERASE ,URINE NEGATIVE (NEGATIVE); NITRATE,URINE NEGATIVE (NEGATIVE); OCCULT BLOOD,URINE NEGATIVE (NEGATIVE); PH,URINE 5.5 (5.0-8.0); PROTEIN,URINE TRACE mg/dL (NEGATIVE); SPECIFIC GRAVITIY, URINE 1.021 (1.003-1.030); UROBILINOGEN,URINE <=1.0 mg/dL (<=1.0)
[2022-04-19 06:30] LABS: BACTERIA,URINE None Seen /HPF (None Seen); RBC,URINE None Seen /HPF (0-2); SQUAMOUS EPITHELIAL CELL,UR Rare /LPF (None Seen); WBC,URINE 0-2 /HPF (0-5)
[2022-04-19 06:52] LABS: CREATINE KINASE, TOTAL ONLY 361 U/L (39-308)
[2022-04-19 06:53] LABS: B-TYPE NATRIURETIC PEPTIDE 51 pg/mL (0-100)
[2022-04-19 07:32] LABS: COVID AG,FIA SOURCE NASAL SWAB
[2022-04-19] MEDS ORDERED: PERTUSS(ACELL),DIPH,TET VAC/PF 0.5 ML SYRINGE IM. ONE (07:45)
[2022-04-19] MEDS ORDERED: CeFAZolin 2 GM/DEXTROSE 50 ML IV ONE (07:45)
[2022-04-19 07:51] VITALS: BP 138/89
[2022-04-19 08:21] LABS: GLUCOSE,POINT OF CARE 166 MG/DL (70-110)
[2022-04-19 08:37] LABS: INFLUENZA TYPE A NEGATIVE FOR TYPE A (NEGATIVE); INFLUENZA TYPE B NEGATIVE FOR TYPE B (NEGATIVE)
== END 2022-04-19 08:43 | disposition short-term general hospital (02) ==
LOC: EMS 04:56
DX: S12.100A Unspecified displaced fracture of second cervical vertebra, initial encounter for closed fracture (principal); S02.2XXA Fracture of nasal bones, initial encounter for closed fracture; T40.601A Poisoning by unspecified narcotics, accidental (unintentional), initial encounter; E11.65 Type 2 diabetes mellitus with hyperglycemia; R00.0 Tachycardia, unspecified; S03.2XXA Dislocation of tooth, initial encounter; I10 Essential (primary) hypertension; F41.9 Anxiety disorder, unspecified; F15.90 Other stimulant use, unspecified, uncomplicated; F17.210 Nicotine dependence, cigarettes, uncomplicated; Z79.899 Other long term (current) drug therapy; Z79.84 Long term (current) use of oral hypoglycemic drugs; Z20.822 Contact with and (suspected) exposure to COVID-19; W18.39XA Other fall on same level, initial encounter; Y93.89 Activity, other specified; Y92.89 Other specified places as the place of occurrence of the external cause; Y99.8 Other external cause status
CPT/HCPCS: 99291; 70450; 96365; 71045; 96361; 96375; 87426; 80053; 81001; 82550; 82962; 83605; 83880; 84484; 85025; 85610; 85730; 87040; 87804; 73030; 73562 ×2; 70486; 72125; 72131; 90715; 93005; 90471; 84145; 36415; G0480; J1815; J7030; J0690